=== PATIENT | female | born 1990 | race Caucasian/White ===

== ENCOUNTER 2021-03-27 10:16 | Emergency (ER) | payer OTHER ==
[2021-03-27 11:20] LABS: HEMOGLOBIN 14.8 gm/dl (12.3-15.3); RED BLOOD COUNT 4.58 M/UL (4.00-5.10); WHITE BLOOD COUNT 10.2 K/UL (4.5-11.0)
[2021-03-27 11:40] LABS: BUN/CREATININE RATIO 27 (0-10)
[2021-03-27] MEDS ORDERED: MACROBID 100 M100 MG PO (13:42)
[2021-03-27] MEDS ORDERED: ZOFRAN4 MG PO (13:42)
== END 2021-03-27 13:52 | disposition home or self-care (01) ==
LOC: ER1 10:16
PROVIDERS: Physician Assistant
DX: N39.0 Urinary tract infection, site not specified (principal)
CPT/HCPCS: 80053; 81001; 84703; 85025; 87086; 96374; 96375; 99284; J1885; J2405; Q9967